=== PATIENT | female | born 1940 | race Caucasian/White ===

== ENCOUNTER 2018-09-26 05:36 | Inpatient (IN) ==
[2018-09-26] MEDS ORDERED: ALVIMOPAN 12 MG CAPSULE PO ONE (06:00)
[2018-09-26] MEDS ORDERED: LIDOCAINE 1%/EPI INJ 20 ML VIAL ONE ×2 (06:19→08:10)
[2018-09-26 06:44] LABS: Basophils # 0.1 10*3/uL (0.0-0.2); Basophils % 0.6 % (0.0-0.8); Eosinophils # 0.3 10*3/uL (0.0-0.87); Eosinophils % 2.6 % (0.00-10.9); Hematocrit 37.1 VOL% (35.7-47.0); Hemoglobin 11.3 GM/DL (12.0-16.0); Immature Granulocytes % 0.4 %; Immature Granulocytes Absolute 0.05 #; Lymphocytes % 17.5 % (21.3-54.2); Mean Corpuscular HGB Conc 30.5 GM/DL (32-36); Mean Corpuscular Hemoglobin 24 PG (27-34); Mean Corpuscular Volume 79.6 FL (87-102); Mean Platelet Volume 9.3 FL (9.6-12.0); Monocytes # 0.8 10*3/uL (0.11-0.8); Monocytes % 6.5 % (1.7-12.7); Neutrophils # 8.4 10*3/uL (1.4-7.4); Neutrophils % 72.4 % (38.7-73.9); Platelet Count 263 T/CUMM (130-400); Red Blood Count 4.66 MC/CUMM (3.8-5.5); Red Cell Distribution Width 19.1 % (9.3-17.3); White Blood Count 11.6 T/CUMM (4-12)
[2018-09-26] MEDS: LACTATED RINGERS 1,000 ML IV SCH ×3 (06:52→11:50)
[2018-09-26] MEDS ORDERED: ALVIMOPAN 12 MG CAPSULE ONE (07:05)
[2018-09-26] MEDS ORDERED: ERTAPENEM 1,000 MG VIAL ONE (07:05)
[2018-09-26 07:12] LABS: Albumin 3.3 G/DL (3.4-5.0); Bilirubin,Total 0.4 MG/DL (0.2-1.0); Osmolality,Calculated 274.7 MOS/KG (273-304); Potassium 3.6 MMOL/L (3.5-5.1); Total Protein 7.5 G/DL (6.4-8.3)
[2018-09-26] MEDS ORDERED: ALBUMIN 5% 12.5 GM/250 ML VIAL IV ONE (07:20)
[2018-09-26] MEDS ORDERED: SUGAMMADEX 200 MG/2 ML VIAL IV ONE (10:54)
[2018-09-26] MEDS ORDERED: MORPHINE 4 MG/1 ML VIAL IV PRN (11:48)
[2018-09-26] MEDS ORDERED: ONDANSETRON 4 MG/2 ML VIAL IV PRN (11:48)
[2018-09-26] MEDS ORDERED: VANCOMYCIN INJ 1,000 MG in SODIUM CHLORIDE 0.9% 250 ML IV ONE (11:55)
[2018-09-26] MEDS ORDERED: ROPIVACAINE 0.5% 30 ML VIAL ONE (11:59)
[2018-09-26] MEDS: SODIUM CHLORIDE 0.9% 1,000 ML IV SCH ×2 (12:00→20:00)
[2018-09-26 12:12] LABS: Apearance,Urine Slightly Hazy (Clear); Bilirubin,Urine Negative (Negative); Blood, Urine Negative (Negative); Glucose,Urine (UA) 50 mg/dL (Negative); Hyaline Casts,Urine 5 /LPF (0-3); Ketones,Urine 5 mg/dL (Negative); Mucus,Urine Occasional /LPF (Occasional); Nitrite,Urine Negative (Negative); Protein,Urine 30 MG/DL; RBC,Urine 2 /HPF (0-4); Squamous Epithelial Cell,Urine Occasional /HPF (0-10); Urine Color Yellow (Yellow); Urine Specific Gravity 1.017 (1.001-1.035); Urine Urobilinogen < 2.0 EU/DL (0.2-1.0); WBC,Urine 1 /HPF (0-6)
[2018-09-26] MEDS ORDERED: PROPOFOL 200 MG/20 ML VIAL IV ONE (12:22)
[2018-09-26] MEDS ORDERED: SEVOFLURANE 1 UNIT/15 MINUTE INH ONE (12:23)
[2018-09-26] MEDS ORDERED: fentaNYL 100 MCG/2 ML VIAL ONE (12:23)
[2018-09-26] MEDS ORDERED: ePHEDrine 50 MG/ML AMP ONE (12:23)
[2018-09-26] MEDS ORDERED: ACETAMINOPHEN 1,000 MG/100 ML VIAL IV ONE (12:24)
[2018-09-26] MEDS ORDERED: ONDANSETRON 4 MG/2 ML VIAL ONE (12:24)
[2018-09-26] MEDS ORDERED: ROCURONIUM 100 MG/10 ML VIAL IV ONE (12:24)
[2018-09-26] MEDS ORDERED: PHENYLEPHRINE 1 MG/10 ML SYRINGE IV ONE (12:24)
[2018-09-26] MEDS ORDERED: PHENYLEPHRINE 10 MG/1 ML VIAL IV ONE (12:24)
[2018-09-26] MEDS ORDERED: GLYCOPYRROLATE 0.4 MG/2 ML VIAL ONE (12:24)
[2018-09-26] MEDS ORDERED: LACTATED RINGERS 2,000 ML IV ONE (12:25)
[2018-09-26] MEDS ORDERED: SODIUM CHLORIDE 0.9% 100 ML IV ONE (12:25)
[2018-09-26 13:10] LABS: Hematocrit 34.6 VOL% (35.7-47.0)
[2018-09-26 13:12] LABS: Hemoglobin 10.2 GM/DL (12.0-16.0)
[2018-09-26] MEDS: CLINDAMYCIN INJ 600 MG in PREMIX 1 EACH IV SCH ×2 (15:17→21:50)
[2018-09-26] MEDS ORDERED: DEXTROSE 50% 25 GM/50 ML SYRINGE IV PRN (15:51)
[2018-09-26] MEDS ORDERED: GLUCAGON 1 MG VIAL IM PRN (15:51)
[2018-09-26] MEDS: INSULIN LISPRO 100 UNIT/ML SUBCUT SCH (17:32)
[2018-09-26 20:09] LABS: Hematocrit 33.7 VOL% (35.7-47.0)
[2018-09-26] MEDS: ALVIMOPAN 12 MG CAPSULE PO SCH (21:55)
[2018-09-27] MEDS: CLINDAMYCIN INJ 600 MG in PREMIX 1 EACH IV SCH ×4 (03:43→20:36)
[2018-09-27 05:21] LABS: Basophils % 0.3 % (0.0-0.8); Eosinophils # 0.1 10*3/uL (0.0-0.87); Eosinophils % 1.1 % (0.00-10.9); Hematocrit 32.5 VOL% (35.7-47.0); Hemoglobin 9.5 GM/DL (12.0-16.0); Immature Granulocytes % 0.3 %; Immature Granulocytes Absolute 0.04 #; Lymphocytes # 1.5 10*3/uL (1.4-4.0); Lymphocytes % 12.9 % (21.3-54.2); Mean Corpuscular HGB Conc 29.2 GM/DL (32-36); Mean Corpuscular Hemoglobin 24 PG (27-34); Mean Corpuscular Volume 80.8 FL (87-102); Mean Platelet Volume 9.9 FL (9.6-12.0); Monocytes # 0.9 10*3/uL (0.11-0.8); Monocytes % 7.3 % (1.7-12.7); Neutrophils # 9.3 10*3/uL (1.4-7.4); Neutrophils % 78.1 % (38.7-73.9); Platelet Count 228 T/CUMM (130-400); Red Blood Count 4.02 MC/CUMM (3.8-5.5); Red Cell Distribution Width 19.1 % (9.3-17.3); White Blood Count 11.9 T/CUMM (4-12)
[2018-09-27 05:49] LABS: Calcium 8.4 MG/DL (8.5-10.1); Osmolality,Calculated 272.8 MOS/KG (273-304); Potassium 3.8 MMOL/L (3.5-5.1)
[2018-09-27] MEDS: ENOXAPARIN 40 MG/0.4 ML SYRINGE SUBCUT SCH (06:22)
[2018-09-27] MEDS: SODIUM CHLORIDE 0.9% 1,000 ML IV SCH ×4 (08:20→20:30)
[2018-09-27] MEDS: ROSUVASTATIN 10 MG TABLET PO SCH (09:32)
[2018-09-27] MEDS: ALVIMOPAN 12 MG CAPSULE PO SCH ×2 (09:33→20:36)
[2018-09-27] MEDS: hydroCHLOROthiazide 12.5 MG CAPSULE PO SCH (09:42)
[2018-09-27] MEDS: METOPROLOL SUCCINATE XL 25 MG TABLET PO SCH (09:43)
[2018-09-27] MEDS: INSULIN LISPRO 100 UNIT/ML SUBCUT SCH ×3 (09:50→16:24)
[2018-09-28] MEDS: SODIUM CHLORIDE 0.9% 1,000 ML IV SCH (03:30)
[2018-09-28] MEDS: CLINDAMYCIN INJ 600 MG in PREMIX 1 EACH IV SCH ×4 (03:30→21:29)
[2018-09-28 05:44] LABS: Basophils # 0.1 10*3/uL (0.0-0.2); Basophils % 0.5 % (0.0-0.8); Eosinophils # 0.3 10*3/uL (0.0-0.87); Eosinophils % 3.5 % (0.00-10.9); Hematocrit 34.2 VOL% (35.7-47.0); Hemoglobin 9.8 GM/DL (12.0-16.0); Immature Granulocytes % 0.3 %; Immature Granulocytes Absolute 0.03 #; Lymphocytes # 1.7 10*3/uL (1.4-4.0); Mean Corpuscular HGB Conc 28.7 GM/DL (32-36); Mean Corpuscular Hemoglobin 24 PG (27-34); Mean Corpuscular Volume 82.4 FL (87-102); Mean Platelet Volume 9.9 FL (9.6-12.0); Monocytes # 0.9 10*3/uL (0.11-0.8); Monocytes % 8.9 % (1.7-12.7); Neutrophils # 6.8 10*3/uL (1.4-7.4); Neutrophils % 69.8 % (38.7-73.9); Platelet Count 217 T/CUMM (130-400); Red Blood Count 4.15 MC/CUMM (3.8-5.5); Red Cell Distribution Width 18.9 % (9.3-17.3); White Blood Count 9.8 T/CUMM (4-12)
[2018-09-28] MEDS: ENOXAPARIN 40 MG/0.4 ML SYRINGE SUBCUT SCH (06:04)
[2018-09-28] MEDS: INSULIN LISPRO 100 UNIT/ML SUBCUT SCH ×3 (07:16→17:03)
[2018-09-28] MEDS: ALVIMOPAN 12 MG CAPSULE PO SCH ×2 (09:20→21:30)
[2018-09-28] MEDS: ROSUVASTATIN 10 MG TABLET PO SCH (09:20)
[2018-09-28] MEDS: METOPROLOL SUCCINATE XL 25 MG TABLET PO SCH (09:20)
[2018-09-28] MEDS: hydroCHLOROthiazide 12.5 MG CAPSULE PO SCH (09:28)
[2018-09-29] MEDS: CLINDAMYCIN INJ 600 MG in PREMIX 1 EACH IV SCH ×2 (02:45→08:20)
[2018-09-29] MEDS: ENOXAPARIN 40 MG/0.4 ML SYRINGE SUBCUT SCH (06:21)
[2018-09-29] MEDS: INSULIN LISPRO 100 UNIT/ML SUBCUT SCH ×2 (07:44→11:47)
[2018-09-29] MEDS: LACTATED RINGERS 1,000 ML IV SCH (08:05)
[2018-09-29] MEDS: SODIUM CHLORIDE 0.9% 1,000 ML IV SCH (08:05)
[2018-09-29] MEDS: hydroCHLOROthiazide 12.5 MG CAPSULE PO SCH (08:18)
[2018-09-29] MEDS: METOPROLOL SUCCINATE XL 25 MG TABLET PO SCH (08:18)
[2018-09-29] MEDS: ROSUVASTATIN 10 MG TABLET PO SCH (08:18)
[2018-09-29] MEDS: ALVIMOPAN 12 MG CAPSULE PO SCH (08:18)
[2018-09-29 12:20] VITALS: BP 146/85
== END 2018-09-29 14:50 | disposition home or self-care (01) | DRG 331 ==
LOC: N.OR 05:36 → N.SDSINP 05:41 → N.3E 13:35
PROVIDERS: ADMIT Surgery; ATTEND Surgery